=== PATIENT | male | born 1970 | race Caucasian/White ===

== ENCOUNTER 2022-09-02 05:09 | Inpatient (IN) | payer MEDICARE, BC ==
[~2022-09-02] VITALS: Ht 177.8 cm; Wt 97.7 kg
[2022-09-02] VITALS (19 sets, daily range): BP systolic 89–142; BP diastolic 58–86
--- NOTE | 2022-09-02 05:40 | NUR ---
MIRANDARA78 FROM HOME C/O FEVER FOR THE PAST TWO DAYS. PATIENT IS AAOX4. COMPLAINING OF SOB. ATTACHED TO OXYGEN INH AT 3LPM. ATTACHED TO MONITOR. VITALS CHECKED. PATIENT CAME WITH IV CANNULA G20 ON RIGHT WRIST.
--- NOTE | 2022-09-02 06:04 | NUR ---
STU LITTLE (GIRLFRIEND) [phone]
--- NOTE | 2022-09-02 06:05 | NUR ---
IV ESTABLISHED WEARING APPAREL ASSEMBLER R WRIST #20G S/L
[2022-09-02] MEDS ORDERED: ACETAMINOPHEN ES 500 MG TABLET ONE (06:16)
--- NOTE | 2022-09-02 06:26 | NUR ---
CAFE ASSISTANT AT BEDSIDE
--- NOTE | 2022-09-02 06:26 | NUR ---
COVID AND INFLUENZA SWAB DONE AND SENT TO LAB
--- NOTE | 2022-09-02 06:26 | NUR ---
EKG DONE AT BEDSIDE
--- NOTE | 2022-09-02 06:28 | NUR ---
EXPLOSIVE ORDNANCE SPECIALIST AT BEDSIDE
[2022-09-02] MEDS ORDERED: IV NS 0.9% 1,000 ML BAG IV ONE ×2 (06:30→07:30)
[2022-09-02] MEDS ORDERED: ACETAMINOPHEN ES 500 MG TABLET PO ONE (06:30)
--- NOTE | 2022-09-02 06:46 | NUR ---
NO URINE SAMPLE AT THE MOMENT. PATIENT CANNOT PRODUCE URINE. ENCOURAGED PT TO URINATE
[2022-09-02 06:50] LABS: BASOPHILS % (AUTO) 0.3 % (0.0-2.0); EOSINOPHILS % (AUTO) 0.2 % (0.0-6.0); HEMATOCRIT 37 % (39-51); HEMOGLOBIN 12.2 g/dL (13.5-17.5); LYMPHOCYTES # (AUTO) 0.2 K/uL (0.8-4.8); LYMPHOCYTES % (AUTO) 3.6 % (20.0-44.0); MEAN CORPUSCULAR HGB CONC 33 g/dl (31.0-36.0); MEAN CORPUSCULAR VOLUME 92 fL (80-96); MONOCYTES # (AUTO) 0.3 K/uL (0.1-1.30); MONOCYTES % (AUTO) 4.1 % (2.0-12.0); NEUTROPHILS # (AUTO) 5.9 K/uL (1.8-8.9); NEUTROPHILS % (AUTO) 91.8 % (43.0-81.0); PLATELET COUNT (AUTO) 136 K/uL (150-450); RED BLOOD CELL COUNT(AUTO) 3.98 MIL/uL (4.5-6.0); WHITE BLOOD COUNT (AUTO) 6.4 K/uL (4.3-11.0)
[2022-09-02] MEDS ORDERED: IV NS 0.9% 250 ML IV ONE (06:51)
[2022-09-02] MEDS ORDERED: IOHEXOL-350 100 ML VIAL IV ONE (06:51)
[2022-09-02 06:53] LABS: ALBUMIN 2.9 g/dL (3.4-5.0); BILIRUBIN,DIRECT 0.1 mg/dL (0.0-0.2); BILIRUBIN,TOTAL 0.3 mg/dL (0.2-1.0); CALCIUM, SERUM 8.5 mg/dL (8.5-10.1); CREATININE 1.7 mg/dL (0.6-1.3); POTASSIUM 3.5 mmol/L (3.5-5.1)
--- NOTE | 2022-09-02 06:57 | NUR ---
DR NERI JACKSON (NO ANSWER) DIRECTOR OF SERVICES WILL CALL BACK
--- NOTE | 2022-09-02 07:07 | NUR ---
CR 1.7; PER DR. MUHAMMAD ORDER FOR CT WITHOUT CONTRAST.
--- NOTE | 2022-09-02 07:28 | NUR ---
TAKEN TO CT VIA SVETLANA
[2022-09-02] MEDS ORDERED: VANCOMYCIN 1 GM in IV D5W 250 ML IV ONE (07:30)
[2022-09-02] MEDS ORDERED: CLINDAMYCIN 900 MG in IV D5W 100 ML IV ONE (07:30)
[2022-09-02] MEDS: NOREPINEPHRINE 8 MG in IV NS 0.9% 250 ML IV ONE ×2 (08:32→08:54)
--- NOTE | 2022-09-02 08:37 | NUR ---
MOVE SHEET SUBMITTED
[2022-09-02] MEDS ORDERED: LEVE500T20 PO (08:52)
[2022-09-02] MEDS ORDERED: PREG-59 PO (08:52)
[2022-09-02] MEDS ORDERED: VILA40TA PO (08:52)
[2022-09-02] MEDS ORDERED: NALO25TA PO (08:52)
[2022-09-02] MEDS ORDERED: ERGO500093 PO (08:52)
[2022-09-02] MEDS ORDERED: DEXT20TA6 PO (08:52)
[2022-09-02] MEDS ORDERED: BREX4TAB PO (08:52)
[2022-09-02] MEDS ORDERED: LISI-768 PO (08:52)
[2022-09-02] MEDS ORDERED: CHLO473M2 PO (08:52)
[2022-09-02] MEDS ORDERED: FENT1PAT TD (08:52)
[2022-09-02] MEDS ORDERED: PANT40TA49 PO (08:52)
[2022-09-02] MEDS ORDERED: BUPR-319 PO (08:52)
[2022-09-02] MEDS ORDERED: FERR325T24 PO (08:52)
[2022-09-02] MEDS ORDERED: WEGOVY (08:52)
[2022-09-02] MEDS ORDERED: MEMA28CA5 PO (08:52)
[2022-09-02] MEDS ORDERED: TEST200V3 IM (08:52)
[2022-09-02] MEDS ORDERED: METF-440 PO (08:52)
[2022-09-02] MEDS ORDERED: PRED10TA PO (08:52)
[2022-09-02] MEDS ORDERED: GLIM2TAB31 PO (08:52)
[2022-09-02] MEDS ORDERED: ATOR40TA PO (08:52)
[2022-09-02] MEDS ORDERED: HYDROCORTISONE SOD SUCCINATE 100 MG/2 ML VIAL ONE (09:26)
[2022-09-02] MEDS ORDERED: HYDROCORTISONE SOD SUCCINATE 100 MG/2 ML VIAL IV ONE (09:30)
[2022-09-02] MEDS ORDERED: MEROPENEM 1,000 MG in IV NS 0.9% 100 ML IV ONE (09:30)
[2022-09-02] MEDS ORDERED: LEVETIRACETAM (500MG) 500 MG in IV NS 0.9% 100 ML IV SCH (10:00)
--- NOTE | 2022-09-02 10:00 | NUR ---
HOLD LEVO BP 204/83, MD AWARE
--- NOTE | 2022-09-02 10:15 | NUR ---
URINE COLLECTED AND SENT TO LAB
[2022-09-02 10:50] LABS: BILIRUBIN,URINE NEGATIVE (NEGATIVE); COLOR,URINE YELLOW (YELLOW); LEUKOCYTE ESTERASE ,URINE NEGATIVE (NEGATIVE); NITRITE, URINE NEGATIVE (NEGATIVE); PROTEIN,URINE 30 mg/dl (NEGATIVE); UGLUCOSE NEGATIVE (NEGATIVE); UROBILINOGEN,URINE 0.2 EU/dL (0.2)
[2022-09-02 11:01] LABS: BACTERIA,URINE None seen /HPF (None Seen); SQUAMOUS EPITHELIAL CELL,UR Rare /HPF (None Seen); WBC,URINE 0-2 /HPF (0-3)
--- NOTE | 2022-09-02 11:19 | NUR ---
PATIENT BP-75/40 COMMENCED ON ABOVE LEVO. INF AT 0.1MCG/KG/MIN.
--- NOTE | 2022-09-02 11:33 | NUR ---
BED GIVEN 254
--- NOTE | 2022-09-02 12:48 | NUR ---
REPORT GIVEN TO LEONA RAINEY ICU ROOM 255
[2022-09-02] MEDS ORDERED: NOREPINEPHRINE 8 MG in IV NS 0.9% 242 ML IV PRN (13:00)
--- NOTE | 2022-09-02 13:24 | NUR ---
PT ARRIVED IN ICU AT 1324 VIA GURNEY FROM ER. PT SETTLED IN ROOM, HOOKED UP TO MONITOR AND ORIENTED PATIENT TO ROOM. PT IS ALERT OX3, ABLE TO USE URINAL WITHOUT DIFFICULTY PER PATIENT. PT CHECKED ON HOURLY AND PRN BY NURSING STAFF.
--- NOTE | 2022-09-02 13:28 | NUR ---
PATIENT ADMITTED IN ICU ROOM 255 FOR YVONNE
[2022-09-02] MEDS ORDERED: Z GUARD REMEDY 4 OZ OINT TP PRN (13:30)
[2022-09-02] MEDS ORDERED: ACETAMINOPHEN 325 MG TABLET PO PRN (13:30)
[2022-09-02] MEDS ORDERED: NALOXONE HCL 0.4 MG/ML AMPUL IV PRN (13:30)
[2022-09-02] MEDS ORDERED: FENTANYL 50 MCG/HR TP SCH ×2 (13:30→20:00)
[2022-09-02] MEDS ORDERED: MAG HYDROX/AL HYDROX/SIMETH 30 ML UDC PO PRN (13:30)
[2022-09-02] MEDS ORDERED: ONDANSETRON HCL/PF 4 MG/2 ML VIAL IVP PRN (13:30)
[2022-09-02] MEDS ORDERED: MAGNESIUM HYDROXIDE 30 ML UDC PO PRN (13:30)
[2022-09-02] MEDS ORDERED: MICAFUNGIN SODIUM 150 MG in IV NS 0.9% 100 ML IV SCH (14:00)
[2022-09-02] MEDS: IV 1/2NS 1000 ML 1,000 ML IV PRN (14:04)
[2022-09-02] MEDS ORDERED: IV NS 0.9% 250 ML IV PRN (15:00)
[2022-09-02] MEDS ORDERED: DEXTROSE 50%-WATER 50 ML DISP.SYRIN IV PRN (15:00)
[2022-09-02] MEDS: ENOXAPARIN SODIUM 40 MG/0.4 ML DISP.SYRIN SQ SCH (15:31)
[2022-09-02] MEDS: HYDROCODONE/APAP 5/325MG TABLET PO PRN ×2 (16:22→21:21)
[2022-09-02] MEDS ORDERED: GLIMEPIRIDE 1 MG TABLET PO SCH (17:00)
[2022-09-02] MEDS: MEROPENEM 1 G in IV NS 0.9% 100 ML IV SCH (17:08)
[2022-09-02] MEDS: CHLORHEXIDINE GLUCONATE 15 ML UDC MM SCH (17:08)
[2022-09-02] MEDS: BLOOD SUGAR DIAGNOSTIC 1 EACH STRIP IN SCH ×2 (17:08→21:12)
[2022-09-02] MEDS: PREGABALIN 25 MG CAPSULE PO SCH ×2 (17:11→21:11)
[2022-09-02] MEDS: METFORMIN 500 MG TABLET PO SCH (17:11)
[2022-09-02] MEDS: INSULIN REGULAR, HUMAN 100 UNIT/ML 3 ML VIAL SQ PRN (18:24)
[2022-09-02] MEDS: AMPHETAMINE 20 MG PO SCH (18:35)
--- NOTE | 2022-09-02 19:06 | NUR ---
END OF SHIFT NOTE: LEVOPHED GTT WAS TURNED OFF AT 1349 TODAY, NO FURTHER ISSUES WITH BP. PT ALERT OX4. STEADY ON FEET TO BATHROOM. HOME MEDS SENT TO PHARMACY AND PROCESSED. ADDERALL HOME MED LOCKED IN LOCK BOX WITH DOCUMENTATION PAPER FROM PHARMACY. NO ELEVATED TEMP SINCE ADMISSION. PT CHECKED ON HOURLY AND PRN BY NURSING STAFF.
[2022-09-02] MEDS: LEVETIRACETAM (250 MG) 250 MG TABLET PO SCH (21:11)
[2022-09-02] MEDS: ATORVASTATIN 40 MG TABLET PO SCH (21:11)
[2022-09-03] VITALS (17 sets, daily range): BP systolic 90–164; BP diastolic 54–99
[2022-09-03] MEDS: MEROPENEM 1 G in IV NS 0.9% 100 ML IV SCH ×3 (00:24→17:15)
[2022-09-03] MEDS: HYDROCODONE/APAP 5/325MG TABLET PO PRN ×4 (01:27→17:15)
[2022-09-03] MEDS: IV 1/2NS 1000 ML 1,000 ML IV PRN (03:10)
[2022-09-03 05:03] LABS: BASOPHILS % (AUTO) 0.5 % (0.0-2.0); EOSINOPHILS % (AUTO) 1.7 % (0.0-6.0); HEMATOCRIT 32 % (39-51); HEMOGLOBIN 10.9 g/dL (13.5-17.5); LYMPHOCYTES # (AUTO) 0.6 K/uL (0.8-4.8); LYMPHOCYTES % (AUTO) 9.4 % (20.0-44.0); MEAN CORPUSCULAR HGB CONC 34 g/dl (31.0-36.0); MEAN CORPUSCULAR VOLUME 92 fL (80-96); MONOCYTES # (AUTO) 0.5 K/uL (0.1-1.30); MONOCYTES % (AUTO) 8.2 % (2.0-12.0); NEUTROPHILS # (AUTO) 4.8 K/uL (1.8-8.9); NEUTROPHILS % (AUTO) 80.2 % (43.0-81.0); PLATELET COUNT (AUTO) 116 K/uL (150-450); RED BLOOD CELL COUNT(AUTO) 3.48 MIL/uL (4.5-6.0)
[2022-09-03 05:32] LABS: CREATININE 1.3 mg/dL (0.6-1.3); MAGNESIUM 1.7 mg/dL (1.8-2.4); PHOSPHORUS 2.6 mg/dL (2.5-4.9); POTASSIUM 3.5 mmol/L (3.5-5.1)
[2022-09-03 05:45] LABS: THYROID STIMULATING HORMONE 1.486 uIU/mL (0.358-3.74)
--- NOTE | 2022-09-03 07:30 | NUR ---
OPENING NOTE: REPORT RECEIVED FROM VENKATESH RAINEY. ORDERS AND LABS REVIEWED DURING REPORT. PT ALERT OX3. NO DIFFICULTIES REPORTED OVERNIGHT. PT WALKS TO BATHROOM WITHOUT DIFFICULTY, NO WEAKNESS OR DIZZINESS NOTED. PT CONCERNED ABOUT SOME HOME MEDS THAT ARE BEING HELD. DR AVENDANO NOTIFIED. PT CHECKED ON HOURLY AND PRN BY NURSING STAFF.
[2022-09-03] MEDS: BLOOD SUGAR DIAGNOSTIC 1 EACH STRIP IN SCH ×4 (07:51→21:15)
[2022-09-03] MEDS: PANTOPRAZOLE 40 MG TABLET.DR PO SCH (08:24)
[2022-09-03] MEDS: PREGABALIN 25 MG CAPSULE PO SCH ×4 (08:24→21:04)
[2022-09-03] MEDS: FERROUS SULFATE (325 MG) 325 MG/TAB TABLET PO SCH (08:24)
[2022-09-03] MEDS: BUPROPION XL 150 MG TAB.ER.24 PO SCH (08:25)
[2022-09-03] MEDS: METFORMIN 500 MG TABLET PO SCH ×2 (08:25→17:16)
[2022-09-03] MEDS: MEMANTINE HCL 5 MG TABLET PO SCH (08:25)
[2022-09-03] MEDS: LEVETIRACETAM (250 MG) 250 MG TABLET PO SCH ×2 (08:25→21:04)
[2022-09-03] MEDS: AMPHETAMINE 20 MG PO SCH ×3 (08:25→17:16)
[2022-09-03] MEDS: CHLORHEXIDINE GLUCONATE 15 ML UDC MM SCH ×2 (08:25→17:15)
[2022-09-03] MEDS: predniSONE 20 MG TABLET PO SCH (08:38)
[2022-09-03] MEDS: GLIMEPIRIDE 4 MG TABLET PO SCH ×2 (08:38→17:16)
[2022-09-03] MEDS ORDERED: PANTOPRAZOLE 40 MG TABLET.DR PO SCH (09:00)
[2022-09-03] MEDS ORDERED: Magnesium 1GM/D5W 100ML PREMIX 100 ML IV SCH (09:30)
[2022-09-03] MEDS: ENOXAPARIN SODIUM 40 MG/0.4 ML DISP.SYRIN SQ SCH (13:22)
[2022-09-03] MEDS ORDERED: MICA100V IV (13:50)
[2022-09-03] MEDS ORDERED: MICAFUNGIN SODIUM 100 MG in IV NS 0.9% 100 ML IV SCH (14:00)
[2022-09-03] MEDS: MOVANTIK 25 MG PO SCH (15:48)
[2022-09-03] MEDS: INSULIN REGULAR, HUMAN 100 UNIT/ML 3 ML VIAL SQ PRN ×2 (17:17→21:17)
--- NOTE | 2022-09-03 18:06 | NUR ---
END OF SHIFT NOTE: PT IS MED/SURG OVERFLOW. VS TAKEN Q4H. PT REQUESTS TO NOT HAVE TELEMETRY MONITORING ON ANYMORE SO HE CAN EASILY GET TO THE BATHROOM WHEN HE NEEDS TO. PT HAD A GOOD DAY. PAIN MEDS GIVEN NEEDED FOR PAIN PER MD ORDERS. PT IND IN ROOM WITHOUT DIFFICULTY, STEADY ON HIS FEET. NO ELEVATED TEMPS SINCE ADMISSION. PT CHECKED ON HOURLY AND PRN BY NURSING STAFF.
--- NOTE | 2022-09-03 19:30 | NUR ---
RN OPENING NOTE RECEIVED REPORT FROM DESHAWN FOR [facility]. PT IN BED, IN SITTING POSITION, AWAKE, A/O X 4, ABLE TO MAKE NEEDS KNOWN. ON RA, TOLERATING WELL. NO S/SX OF ACUTE RESPI DISTRESS NOTED AT THIS TIME. NO SOB. PT IS AMBULATORY WITH BRP. GIRLFRIEND ON BEDSIDE. IV ACCESS NOTED IN L UPPER ARM, PICC LINE AND R WRIST, BOTH INTACT AND PATENT, SL. ALL SAFETY MEASURES IN PLACE: BED LOCKED IN LOW POSITION. CALL LIGHT WITHIN REACH. WILL CONTINUE TO MONITOR PT T/O THE NIGHT.
[2022-09-03] MEDS: ATORVASTATIN 40 MG TABLET PO SCH (21:04)
[2022-09-04] VITALS: BP 132/66
[2022-09-04] MEDS: MEROPENEM 1 G in IV NS 0.9% 100 ML IV SCH ×2 (00:20→08:35)
[2022-09-04] MEDS: HYDROCODONE/APAP 5/325MG TABLET PO PRN ×2 (00:49→08:36)
[2022-09-04 04:00] VITALS: BP 132/68
[2022-09-04 05:18] LABS: BASOPHILS % (AUTO) 0.4 % (0.0-2.0); EOSINOPHILS % (AUTO) 1.6 % (0.0-6.0); HEMATOCRIT 33 % (39-51); HEMOGLOBIN 10.9 g/dL (13.5-17.5); LYMPHOCYTES # (AUTO) 0.8 K/uL (0.8-4.8); LYMPHOCYTES % (AUTO) 17.2 % (20.0-44.0); MEAN CORPUSCULAR HGB CONC 33 g/dl (31.0-36.0); MEAN CORPUSCULAR VOLUME 92 fL (80-96); MONOCYTES # (AUTO) 0.7 K/uL (0.1-1.30); MONOCYTES % (AUTO) 14.9 % (2.0-12.0); NEUTROPHILS # (AUTO) 3.2 K/uL (1.8-8.9); NEUTROPHILS % (AUTO) 65.9 % (43.0-81.0); PLATELET COUNT (AUTO) 133 K/uL (150-450); RED BLOOD CELL COUNT(AUTO) 3.57 MIL/uL (4.5-6.0); WHITE BLOOD COUNT (AUTO) 4.9 K/uL (4.3-11.0)
[2022-09-04 05:39] LABS: ALBUMIN 2.8 g/dL (3.4-5.0); BILIRUBIN,TOTAL 0.3 mg/dL (0.2-1.0); CALCIUM, SERUM 8.6 mg/dL (8.5-10.1); CREATININE 1.3 mg/dL (0.6-1.3); MAGNESIUM 1.8 mg/dL (1.8-2.4); POTASSIUM 3.8 mmol/L (3.5-5.1)
--- NOTE | 2022-09-04 06:12 | NUR ---
RN NOTE PT WAS SUPPOSED TO BE TRANSFERRED TO MED SURG, GIRLFRIEND REFUSES THE TRANSFER. WANTS THE PT TO STAY IN ICU UNTIL GIVEN THE GO SIGNAL BY THE DOCTOR TO BE DISCHARGED. CHARGE NURSE COREY TALKED TO THE GIRLFRIEND AND INSISTS ON STAYING IN ICU, REFUSES SIGNING AMA. NURSING BALL SORTER MADE AWARE. TRANSFER CANCELLED.
[2022-09-04 08:00] VITALS: BP 132/68
[2022-09-04] MEDS: BLOOD SUGAR DIAGNOSTIC 1 EACH STRIP IN SCH (08:34)
[2022-09-04] MEDS: AMPHETAMINE 20 MG PO SCH (08:34)
[2022-09-04] MEDS: CHLORHEXIDINE GLUCONATE 15 ML UDC MM SCH (08:34)
[2022-09-04] MEDS: FERROUS SULFATE (325 MG) 325 MG/TAB TABLET PO SCH (08:35)
[2022-09-04] MEDS: GLIMEPIRIDE 4 MG TABLET PO SCH (08:35)
[2022-09-04] MEDS: PREGABALIN 25 MG CAPSULE PO SCH (08:35)
[2022-09-04] MEDS: MEMANTINE HCL 5 MG TABLET PO SCH (08:35)
[2022-09-04] MEDS: BUPROPION XL 150 MG TAB.ER.24 PO SCH (08:35)
[2022-09-04] MEDS: METFORMIN 500 MG TABLET PO SCH (08:36)
[2022-09-04] MEDS: predniSONE 20 MG TABLET PO SCH (08:36)
[2022-09-04] MEDS: MOVANTIK 25 MG PO SCH (08:36)
[2022-09-04] MEDS: PANTOPRAZOLE 40 MG TABLET.DR PO SCH (08:36)
[2022-09-04] MEDS: LEVETIRACETAM (250 MG) 250 MG TABLET PO SCH (08:36)
--- NOTE | 2022-09-04 10:17 | NUR ---
DISCHARGE INSTRUCTIONS SIGNED AND COPY GIVEN TO PATIENT PER PROTOCOL. ALL HOME MEDICATIONS RETURNED TO PATIENT. BELONGINGS LIST SIGNED BY PATIENT. PT ESCORTED TO LOBBY BY RN VIA WHEELCHAIR. PT'S GIRLFRIEND MARK BROUGHT CAR UP TO FRONT ENTRANCE. PT ASSISTED INTO CAR. ALL BELONINGS AND MEDICATIONS WITH PATIENT. PT DC'D AT 1017.
[2022-09-04] MEDS ORDERED: NEUTRA PHOS 1 POWD.PACKET PO ONE (11:00)
== END 2022-09-04 10:17 | disposition home or self-care (01) | DRG 871 ==
LOC: ER 05:13 → ICU 12:26 → MED 09-04 04:53 → ICU 09-04 05:11
DX: A41.9 Sepsis, unspecified organism (principal); G93.41 Metabolic encephalopathy; N17.0 Acute kidney failure with tubular necrosis; R65.21 Severe sepsis with septic shock; E44.1 Mild protein-calorie malnutrition; K04.7 Periapical abscess without sinus; D63.8 Anemia in other chronic diseases classified elsewhere; D69.6 Thrombocytopenia, unspecified; E11.9 Type 2 diabetes mellitus without complications; E66.9 Obesity, unspecified; E78.5 Hyperlipidemia, unspecified; E88.09 Other disorders of plasma-protein metabolism, not elsewhere classified; G40.909 Epilepsy, unspecified, not intractable, without status epilepticus; K21.9 Gastro-esophageal reflux disease without esophagitis; J32.9 Chronic sinusitis, unspecified; Z79.84 Long term (current) use of oral hypoglycemic drugs; Z20.822 Contact with and (suspected) exposure to COVID-19; F32.A Depression, unspecified; G89.29 Other chronic pain; I10 Essential (primary) hypertension; Z68.30 Body mass index [BMI] 30.0-30.9, adult; J39.2 Other diseases of pharynx
CPT/HCPCS: 36415; 70486-TC; 71045-TC; 80048-TC; 80053-TC; 80061-TC; 80076-TC; 81001; 82962-TC; 83605-TC; 83735-TC; 84100-TC; 84443-TC; 85025-TC; 85730-TC; 87040-TC; 87081-TC; 87086-TC; 93307-TC; 93971-TC; C9803; G0378; J1650; J1720; J1815; J1953; J2185; J2248; J3370; J3475; J3490; J7030; J7050; J7060; Q9967